=== PATIENT | female | born 1965 | race Two or more races ===

== ENCOUNTER → 2017-01-31 | Outpatient (CLI) | payer OTHER ==
--- NOTE | ~2017-01-31 | CR221 ---
[facility] A Service of [facility] & [facility] RADIOLOGY TEXT RESULTS PATIENT: SUKHDEEP CHATTERJEE LOCATION: [facility] : 61 UNIT #: [id number] AGE: [address]: Cindi Jeffries APRN SEX: F ORDER DR: [id number] [facility] [address] [place], [place] [address] [id number] O MR#: [id number] Acc #: [id number] NAME: SUKHDEEP CHATTERJEE : 1965 SEX: F STUDY DATE/TIME: 01/31/2017 15:13 UNIT: [facility] ROOM: STUDY DESCRIPTION: CR Scapula Comp Rt Attending Physician: Cindi Jeffries A.P.R.N. Referring Physician: Cindi Jeffries A.P.R.N. Ordering Physician: Cindi Jeffries A.P.R.N. Primary Care Physician: Cindi Jeffries A.P.R.N. MEDICAL IMAGING REPORT This report is preliminary unless electronic signature is present EXAM Right scapula 2 views, 01/31/2017 HISTORY Right scapula pain for 1 month with no known injury. FINDINGS 2 views the right scapula demonstrate no fracture. The bones are normally mineralized. No lytic or erosive process is seen. There is no soft tissue abnormality. IMPRESSION Negative right scapula. Dictated by... Aurelio Daniel M.D. THIS IS AN ELECTRONICALLY VERIFIED REPORT Aurelio Daniel M.D. at 02/01/2017 2:38 PM NAKITA/jeanne TD: 02/01/2017 02:27 JOB #: [id number] MEDICAL IMAGING REPORT Page 1 of 1 COPY
--- NOTE | ~2017-01-31 | CR230 ---
[facility] A Service of [facility] & [facility] RADIOLOGY TEXT RESULTS PATIENT: SUKHDEEP CHATTERJEE LOCATION: [facility] : 61 UNIT #: [id number] AGE: [address]: Cindi Jeffries APRN SEX: F ORDER DR: [id number] [facility] [address]. [place], [place] [address] [id number] O MR#: [id number] Acc #: [id number] NAME: SUKHDEEP CHATTERJEE : 1965 SEX: F STUDY DATE/TIME: 01/31/2017 15:13 UNIT: [facility] ROOM: STUDY DESCRIPTION: CR Shoulder Min 2 View Rt Attending Physician: Cindi Jeffries A.P.R.N. Referring Physician: Cindi Jeffries A.P.R.N. Ordering Physician: Cindi Jeffries A.P.R.N. Primary Care Physician: Cindi Jeffries A.P.R.N. MEDICAL IMAGING REPORT This report is preliminary unless electronic signature is present EXAM Right shoulder 3 views, 01/31/2017 HISTORY Right shoulder pain and right side neck pain for 1 month. No known injury. FINDINGS AP view with internal and external rotation of the shoulder girdle shows satisfactory relationship of the humeral head and glenoid fossa. The joint space is normal. There is no identifiable fracture or dislocation or bony destructive process about the shoulder girdle anatomy. The acromioclavicular joint is normal. There is no radiopaque foreign body in the region. IMPRESSION Normal shoulder. Dictated by... Aurelio Daniel M.D. THIS IS AN ELECTRONICALLY VERIFIED REPORT Aurelio Daniel M.D. at 02/01/2017 2:38 PM NAKITA/jeanne TD: 02/01/2017 02:26 JOB #: [id number] MEDICAL IMAGING REPORT Page 1 of 1 COPY
--- NOTE | ~2017-01-31 | CR58 ---
[facility] A Service of [facility] & [facility] RADIOLOGY TEXT RESULTS PATIENT: SUKHDEEP CHATTERJEE LOCATION: [facility] : 61 UNIT #: [id number] AGE: [address]: Cindi Jeffries APRN SEX: F ORDER DR: [id number] [facility] [address] [place], [place] [address] [id number] O MR#: [id number] Acc #: [id number] NAME: SUKHDEEP CHATTERJEE : 1965 SEX: F STUDY DATE/TIME: 01/31/2017 15:13 UNIT: [facility] ROOM: STUDY DESCRIPTION: CR Cervical Spine 2 or 3 Views Attending Physician: Cindi Jeffries A.P.R.N. Referring Physician: Cindi Jeffries A.P.R.N. Ordering Physician: Cindi Jeffries A.P.R.N. Primary Care Physician: Cindi Jeffries A.P.R.N. MEDICAL IMAGING REPORT This report is preliminary unless electronic signature is present EXAM Cervical spine, 3 views, 01/31/2017 HISTORY Neck pain radiating down right arm for 1 month with no known injury. FINDINGS Three views of the cervical spine show satisfactory preservation of the cervical lordosis. The cervical soft tissues are normal. All anterior and posterior elements in the cervical area are anatomically normal without identifiable fracture, dislocation, malignant lytic or sclerotic change, or arthritis. There is no congenital defect apparent. IMPRESSION Normal cervical spine. Dictated by... Aurelio Daniel M.D. THIS IS AN ELECTRONICALLY VERIFIED REPORT Aurelio Daniel M.D. at 02/01/2017 2:38 PM KRT/eliazar TD: 02/01/2017 02:43 JOB #: [id number] MEDICAL IMAGING REPORT Page 1 of 1 COPY
== END | disposition home or self-care (01) ==
LOC: CRAD 14:46
DX: M54.2 Cervicalgia (principal); R53.1 Weakness; M79.621 Pain in right upper arm
CPT/HCPCS: 72040; 73010; 73030